=== PATIENT | female | born 1995 | race Caucasian/White ===

== ENCOUNTER 2019-10-14 18:38 | Inpatient (IN) | payer BC ==
[2019-10-14] MEDS ORDERED: Sodium Chloride 0.9% 10 ML Syringe FLUSH PRN (22:54)
[2019-10-14] MEDS ORDERED: Calcium Carbonate 500 MG Tab.Chew PO PRN (22:54)
[2019-10-14] MEDS ORDERED: Nalbuphine 10 MG/1 ML Vial IVPUSH PRN (22:54)
[2019-10-14] MEDS ORDERED: Acetaminophen 325 MG Tab PO PRN (22:54)
[2019-10-14] MEDS ORDERED: Lidocaine 1% 50 ML MDV INJECT ONE (22:54)
[2019-10-14] MEDS ORDERED: Ondansetron 4 MG/2 ML SDV IVPUSH PRN (22:54)
[2019-10-14] MEDS ORDERED: Oxytocin/Lactated Ringers 10 UNIT/1,000 ML BAG IV SCH ×2 (23:00)
[2019-10-14] MEDS: Misoprostol 25 MCG (1/4 of 100 MCG) Tab VAG SCH (23:35)
[2019-10-15] MEDS ORDERED: Bupivacaine 0.25% 10 ML SDV ONE
[2019-10-15] MEDS ORDERED: Misoprostol 25 MCG (1/4 of 100 MCG) Tab VAG SCH (01:00)
[2019-10-15] MEDS: Misoprostol 25 MCG (1/4 of 100 MCG) Tab VAG SCH ×2 (03:30→18:44)
--- NOTE | 2019-10-15 06:43 | PCM.LDHP ---
L&D History of Present Illness - General Date of Service: 10/15/19 Admit Problem/Dx: Patient Status Order with Admit Dx/Problem 10/14/19 22:54 Patient Status [ADT] Routine Admission Diagnosis/Problem Admission Diagnosis/Problem Source of Information: Patient History Limitations: Reports: No Limitations - History of Present Illness Introduction:: Patient is a 24 y/o at 39 3/7 wks who presents for concerns of contractions. Having been about every 4 minutes for several hours. no LOF. 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: 0 LMP (Approximate): - Past Surgical History HEENT Surgical History: Reports: Oral Surgery Other HEENT Surgeries/Procedures: wisdom teeth-2009 GI Surgical History: Reports: Cholecystectomy Social & Family History - Family History Family Medical History: Noncontributory - Tobacco Use Smoking Status *Q: Never Smoker Second Hand Smoke Exposure: No - Alcohol Use Alcohol Use History: No - Recreational Drug Use Recreational Drug Use: No H&P Review of Systems - Review of Systems: Review Of Systems: See Below General: Reports: No Symptoms Pulmonary: Reports: No Symptoms Cardiovascular: Reports: No Symptoms Gastrointestinal: Reports: Abdominal Pain Genitourinary: Reports: No Symptoms Musculoskeletal: Reports: No Symptoms Psychiatric: Reports: No Symptoms Neurological: Reports: No Symptoms L&D Exam - Exam Exam: See Below - Vital Signs Vital Signs: Last Vital Signs Temp 36.7 C 10/14/19 19:17 Pulse 82 10/14/19 19:17 Resp 16 10/14/19 19:17 BP 128/88 10/14/19 19:17 Pulse Ox 100 10/14/19 19:17 Weight: 76.657 kg - OB Specific Contraction Intensity: Mild Movement: Active Heart Tones: Present Heart Tones per Min: 130 Heart Rate (FHR) Variability: Moderate (6-25 bmp) Presentation: Vertex - Mckeon Score Mckeon Score Cervix Position: Posterior Mckeon Score Consistency: Soft Mckeon Score Effacement: 51-70% Mckeon Score Dilation: 1-2 cm Mckeon Score Infant's Station: -2 Mckeon Score Total: 6 - Exam General: Alert, Oriented, Cooperative Lungs: Clear to Auscultation, Normal Respiratory Effort Cardiovascular: Regular Rate, Regular Rhythm GI/Abdominal Exam: Soft, Non-Tender Genitourinary: Normal external exam Extremities: Normal Inspection Skin: Warm, Dry, Intact - Patient Data Lab Results Last 24 hrs: Laboratory Results - last 24 hr 10/14/19 Range/Units 23:20 WBC 12.79 H (3.98-10.04) K/mm3 RBC 4.44 (3.98-5.22) M/mm3 Hgb 13.9 (11.2-15.7) gm/dl Hct 39.9 (34.1-44.9) % MCV 89.9 (79.4-94.8) fl MCH 31.3 (25.6-32.2) pg MCHC 34.8 (32.2-35.5) g/dl RDW Std Deviation 41.8 (36.4-46.3) fL Plt Count 244 (182-369) K/mm3 MPV 10.2 (9.4-12.3) fl Neut % (Auto) 66.2 (34.0-71.1) % Lymph % (Auto) 26.0 (19.3-51.7) % Wilson % (Auto) 6.9 (4.7-12.5) % Eos % (Auto) 0.4 L (0.7-5.8) Baso % (Auto) 0.2 (0.1-1.2) % Neut # (Auto) 8.48 H (1.56-6.13) K/mm3 Lymph # (Auto) 3.32 (1.18-3.74) K/mm3 Wilson # (Auto) 0.88 H (0.24-0.36) K/mm3 Eos # (Auto) 0.05 (0.04-0.36) K/mm3 Baso # (Auto) 0.02 (0.01-0.08) K/mm3 Result Diagrams: 10/14/19 23:20 - Problem List (1) 39 weeks gestation of SNOMED Code(s): 06220458 ICD Code: Z3A.39 - 39 WEEKS GESTATION OF Status: Acute Current Visit: Yes (2) Prolonged latent phase of labor SNOMED Code(s): 685820720 ICD Code: O63.0 - PROLONGED FIRST STAGE (OF LABOR) Status: Acute Current Visit: Yes Problem List Initiated/Reviewed/Updated: Yes Orders Last 24hrs: Active Orders 24 hr Category Date Time Status Patient Status [ADT] Routine ADT 10/14/19 22:54 Active Activity as Tolerated [RC] PFP Care 10/14/19 22:54 Active Communication Order [RC] ASDIRECTED Care 10/14/19 22:54 Active Heart Tones [RC] ASDIRECTED Care 10/14/19 22:55 Active Notify Provider [RC] PFP Care 10/14/19 22:54 Active Notify Provider [RC] PRN Care 10/14/19 22:54 Active Peripheral IV Care [RC] . DIRECTED Care 10/14/19 22:55 Active Vital Signs [RC] PER UNIT ROUTINE Care 10/14/19 22:54 Active Regular Diet [DIET] Diet 10/15/19 Breakfast Active RAPID PLASMA REAGIN,RPR [CHEM] Routine Lab 10/14/19 23:20 Received Acetaminophen [Tylenol] Med 10/14/19 22:54 Active 650 mg PO Q4H PRN Calcium Carbonate [Tums] Med 10/14/19 22:54 Active 1,000 mg PO Q2H PRN Lactated Ringers [Ringers, Lactated] 1,000 ml Med 10/14/19 23:00 Active IV ASDIRECTED Nalbuphine [Nubain] Med 10/14/19 22:54 Active 10 mg IVPUSH Q2H PRN Ondansetron [Zofran] Med 10/14/19 22:54 Active 4 mg IVPUSH Q4H PRN Oxytocin/Lactated Ringers [Pitocin in LR 10 Units/1,000 Med 10/14/19 23:00 Active ML] 10 unit in 1,000 ml IV .CONTINUOUS Oxytocin/Lactated Ringers [Pitocin in LR 10 Units/1,000 Med 10/14/19 23:00 Active ML] 10 unit in 1,000 ml IV TITRATE Sodium Chloride 0.9% [Saline Flush] Med 10/14/19 22:54 Active 10 ml FLUSH ASDIRECTED PRN miSOPROStoL [Cytotec] Med 10/14/19 23:30 Active 25 mcg VAG Q4H Electronic Heart Tones Ext w TOCO [WOMSER] Oth 10/14/19 22:54 Ordered Routine Electronic Heart Tones Internal [WOMSER] Per Unit Oth 10/14/19 22:54 Ordered Routine Peripheral IV Insertion Adult [OM.PC] Routine Oth 10/14/19 22:54 Ordered Resuscitation Status Routine Resus Stat 10/14/19 22:54 Ordered Medication Orders Acetaminophen (Tylenol) 650 mg PO Q4H PRN PRN Reason: Pain (Mild 1-3) and fever Calcium Carbonate/Glycine (Tums) 1,000 mg PO Q2H PRN PRN Reason: Indigestion Lactated Ringer's (Ringers, Lactated) 1,000 mls @ 100 mls/hr IV ASDIRECTED HIRA Oxytocin/Lactated Ringer's (Pitocin In Lr 10 Units/1,000 Ml) 10 unit in 1,000 mls @ 500 mls/hr IV .CONTINUOUS HIRA Oxytocin/Lactated Ringer's (Pitocin In Lr 10 Units/1,000 Ml) 10 unit in 1,000 mls @ 12 mls/hr IV TITRATE HIRA; Protocol Misoprostol (Cytotec) 25 mcg VAG Q4H HIRA Last Admin: 10/15/19 03:30 Dose: 25 mcg Admin: 10/14/19 23:35 Dose: 25 mcg Nalbuphine HCl (Nubain) 10 mg IVPUSH Q2H PRN PRN Reason: Pain Ondansetron HCl (Zofran) 4 mg IVPUSH Q4H PRN PRN Reason: Nausea/Vomiting Sodium Chloride (Saline Flush) 10 ml FLUSH ASDIRECTED PRN PRN Reason: Keep Vein Open Assessment/Plan Comment:: Patient likely in latent labor. Reviewed happy to triage and send home, keep for overnight/extended triage. Patient does question whether can stay for IOL. Reviewed that technically can be done after 39 weeks however can certainly defer intervention. Patient and her would like to stay for triage now. May elect to say given distance from hospital. Will inform me of their decision later. Called by nursing staff at 2230. patient with no significant cervical change, but would like to stay for delivery. Cytotec to be given. Labs drawn. GBS negative, no need for antibiotics
[2019-10-15] MEDS: Lactated Ringers 1,000 ML IV SCH ×5 (08:09→17:45)
[2019-10-15] MEDS ORDERED: fentaNYL/Bupivacaine/NS 2 MCG-0.125% 250 ML EP PRN (09:03)
[2019-10-15] MEDS ORDERED: diphenhydrAMINE 50 MG/ML SDV IVPUSH PRN ×3 (09:03→18:09)
[2019-10-15] MEDS ORDERED: fentaNYL 100 MCG/2 ML SDV EPIDUR PRN (09:03)
[2019-10-15] MEDS ORDERED: ePHEDrine 50 MG/ML SDV IVPUSH PRN (09:03)
--- NOTE | 2019-10-15 09:05 | PCM.PREANE ---
Preanesthetic Assessment - Procedure Proposed Procedure: mabel - Anesthesia/Transfusion/Family Hx Anesthesia History: Prior Anesthesia Without Reaction Family History of Anesthesia Reaction: No Transfusion History: No Prior Transfusion(s) - Review of Systems General: No Symptoms Pulmonary: No Symptoms Cardiovascular: No Symptoms Gastrointestinal: No Symptoms Neurological: No Symptoms Other: Reports: None - Physical Assessment Vital Signs: Last Vital Signs Temp 98.0 F 10/14/19 19:17 Pulse 82 10/14/19 19:17 Resp 16 10/14/19 19:17 BP 128/88 10/14/19 19:17 Pulse Ox 100 10/14/19 19:17 Height: 5 ft 3 in Weight: 76.657 kg ASA Class: 2 Mental Status: Alert & Oriented x3 Airway Class: Mallampati = 1 Dentition: Reports: Normal Dentition Thyro-Mental Finger Breadths: 3 Mouth Opening Finger Breadths: 3 ROM/Head Extension: Full Lungs: Clear to Auscultation, Normal Respiratory Effort Cardiovascular: Regular Rate, Regular Rhythm - Lab Values: Laboratory Last Values WBC 12.79 K/mm3 (3.98-10.04) H 10/14/19 23:20 RBC 4.44 M/mm3 (3.98-5.22) 10/14/19 23:20 Hgb 13.9 gm/dl (11.2-15.7) 10/14/19 23:20 Hct 39.9 % (34.1-44.9) 10/14/19 23:20 MCV 89.9 fl (79.4-94.8) 10/14/19 23:20 MCH 31.3 pg (25.6-32.2) 10/14/19 23:20 MCHC 34.8 g/dl (32.2-35.5) 10/14/19 23:20 RDW Std Deviation 41.8 fL (36.4-46.3) 10/14/19 23:20 Plt Count 244 K/mm3 (182-369) 10/14/19 23:20 MPV 10.2 fl (9.4-12.3) 10/14/19 23:20 Neut % (Auto) 66.2 % (34.0-71.1) 10/14/19 23:20 Lymph % (Auto) 26.0 % (19.3-51.7) 10/14/19 23:20 Hopkins % (Auto) 6.9 % (4.7-12.5) 10/14/19 23:20 Eos % (Auto) 0.4 (0.7-5.8) L 10/14/19 23:20 Baso % (Auto) 0.2 % (0.1-1.2) 10/14/19 23:20 Neut # (Auto) 8.48 K/mm3 (1.56-6.13) H 10/14/19 23:20 Lymph # (Auto) 3.32 K/mm3 (1.18-3.74) 10/14/19 23:20 Hopkins # (Auto) 0.88 K/mm3 (0.24-0.36) H 10/14/19 23:20 Eos # (Auto) 0.05 K/mm3 (0.04-0.36) 10/14/19 23:20 Baso # (Auto) 0.02 K/mm3 (0.01-0.08) 10/14/19 23:20 - Allergies Allergies/Adverse Reactions: Allergies Allergy/AdvReac Type Severity Reaction Status Date / Time No Known Allergies Allergy Verified 10/14/19 20:54 - Blood Blood Available: No - Acknowledgements Anesthesia Type Planned: Epidural Pt an Appropriate Candidate for the Planned Anesthesia: Yes Alternatives and Risks of Anesthesia Discussed w Pt/Guardian: Yes Pt/Guardian Understands and Agrees with Anesthesia Plan: Yes PreAnesthesia Questionnaire - Past Health History Medical/Surgical History: Denies Medical/Surgical History HEENT History: Reports: Impaired Vision Other HEENT History: Wears contacts Cardiovascular History: Reports: None Respiratory History: Reports: None Gastrointestinal History: Reports: GERD (with preg) 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 Oncologic (Cancer) History: Reports: None - Past Surgical History HEENT Surgical History: Reports: Oral Surgery Other HEENT Surgeries/Procedures: wisdom teeth-2009 GI Surgical History: Reports: Cholecystectomy - SUBSTANCE USE Smoking Status *Q: Never Smoker Tobacco Use Within Last Twelve Months: No Second Hand Smoke Exposure: No Days Per Week of Alcohol Use: 0 Recreational Drug Use History: No - HOME MEDS Home Medications: Home Meds Pnv No.95/Ferrous Fum/Folic AC [ Vitamin Tablet] 1 each PO DAILY [History] - CURRENT (IN HOUSE) MEDS Current Meds: Current Medications Acetaminophen (Tylenol) 650 mg PO Q4H PRN PRN Reason: Pain (Mild 1-3) and fever Calcium Carbonate/Glycine (Tums) 1,000 mg PO Q2H PRN PRN Reason: Indigestion Lactated Ringer's (Ringers, Lactated) 1,000 mls @ 100 mls/hr IV ASDIRECTED HIRA Last Admin: 10/15/19 08:09 Dose: 100 mls/hr Oxytocin/Lactated Ringer's (Pitocin In Lr 10 Units/1,000 Ml) 10 unit in 1,000 mls @ 500 mls/hr IV .CONTINUOUS HIRA Oxytocin/Lactated Ringer's (Pitocin In Lr 10 Units/1,000 Ml) 10 unit in 1,000 mls @ 12 mls/hr IV TITRATE HIRA; Protocol Last Admin: 10/15/19 08:09 Dose: 2 munits/min, 12 mls/hr Misoprostol (Cytotec) 25 mcg VAG Q4H HIRA Last Admin: 10/15/19 03:30 Dose: 25 mcg Nalbuphine HCl (Nubain) 10 mg IVPUSH Q2H PRN PRN Reason: Pain Ondansetron HCl (Zofran) 4 mg IVPUSH Q4H PRN PRN Reason: Nausea/Vomiting Sodium Chloride (Saline Flush) 10 ml FLUSH ASDIRECTED PRN PRN Reason: Keep Vein Open Discontinued Medications Lidocaine HCl (Xylocaine 1%) 50 ml INJECT ONETIME ONE Stop: 10/14/19 22:55 Misoprostol (Cytotec) 25 mcg VAG Q4HR HIRA
[2019-10-15] MEDS ORDERED: Citric Acid/Sodium Citrate Solution 30 ML Cup ONE (14:11)
[2019-10-15] MEDS ORDERED: Metoclopramide 10 MG/2 ML SDV ONE (14:11)
--- NOTE | 2019-10-15 14:22 | PCM.SN ---
- Free Text/Narrative Note: 1415 Called by nursing staff. Patient with 9 minute deceleration. Lowest portion of deceleration into the 70's. Deceleration about 7 minutes after ROM. Recovered now to 125 with moderate variability. Will continue to monitor closely Gayathri Prieto MD
[2019-10-15] MEDS ORDERED: ceFAZolin 2 GM in Premix Bag 1 BAG IV ONE (15:53)
[2019-10-15] MEDS ORDERED: Metoclopramide 10 MG/2 ML SDV IVPUSH ONE (15:53)
[2019-10-15] MEDS ORDERED: Nalbuphine 10 MG/1 ML Vial IVPUSH PRN (15:53)
--- NOTE | 2019-10-15 15:53 | PCM.SN ---
- Free Text/Narrative Note: 2760 Patient now with intermittent runs of late decelerations. Not able to start pitocin since last prolonged deceleration. Patient still only about 5 cm. Reviewed tracing findings. Discuss with patient and family. They agree to delivery by . OR crew made aware. Gayathri Prieto
[2019-10-15] MEDS ORDERED: Ondansetron 4 MG/2 ML SDV ONE (15:56)
[2019-10-15] MEDS ORDERED: fentaNYL 100 MCG/2 ML SDV ONE (15:56)
[2019-10-15] MEDS ORDERED: Lactated Ringers 2,000 ML ONE (15:56)
[2019-10-15] MEDS ORDERED: Morphine PF 10 MG/10 ML SDV ONE (15:56)
[2019-10-15] MEDS ORDERED: Oxytocin 10 Units/1 ML SDV ONE (15:56)
[2019-10-15] MEDS ORDERED: Ketorolac 30 MG/ML SDV ONE (15:56)
[2019-10-15] MEDS ORDERED: ceFAZolin 1 GM Vial ONE (15:56)
[2019-10-15] MEDS ORDERED: Citric Acid/Sodium Citrate Solution 30 ML Cup PO ONE (16:00)
--- NOTE | 2019-10-15 16:04 | PCM.OPNOTE ---
- General Post-Op/Procedure Note Date of Surgery/Procedure: 10/15/19 Operative Procedure(s): Primary low transverse Findings: Baby Girl, vertex presentation, APGARS of 7 & 8, Weight of 7 lbs 2 oz Pre Op Diagnosis: 39 weeks gestation. Thick meconium stained fluid. 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 Cord blood collected. Placenta discarded Fluid Replacement, Intraop: 1,800 Output, Urine Amount: 175 EBL in mLs: 700 Complications: None Condition: Good Free Text/Narrative:: The risks, benefits, indications, potential complications, and alternatives were explained to the patient and informed consent obtained. After induction of anesthesia, the patient was placed in a supine position and then draped and prepped in the usual sterile manner. A Pfannenstiel incision was made and carried down through the subcutaneous tissue to the fascia. Fascial incision was made and extended transversely. The fascia was from the underlying rectus tissue superiorly and inferiorly. The peritoneum was identified and entered. Peritoneal incision was extended longitudinally. The utero-vesical peritoneal reflection was incised transversely and the bladder flap was bluntly freed from the lower uterine segment. A low transverse uterine incision was made sharply with a scalpel and extended bluntly in a cephalocaudad direction. A baby girl was delivered from a vertex presentation with APGARS as above. After the umbilical cord was clamped and cut cord blood was obtained for evaluation. The placenta was removed intact and appeared normal. The uterus was exteriorized and cleared of clots. The uterine outline, tubes and ovaries appeared normal. The uterine incision was closed with running locked sutures of 0 Vicryl. Hemostasis was obtained with a second imbricating layer of 0 Vicryl. The uterus was then placed back into the abdomen. The infracolic gutters were cleared of blood clots. The fascia was then reapproximated with running sutures of 0 Vicryl. The subcutaneous tissue was irrigated with sterile warm normal saline, hemostasis obtained with cautery. This layer was also closed with a running 0 Vicryl. The skin was reapproximated with running Subcuticular 4-0 monocryl sutures. Instrument, sponge, and needle counts were correct prior the abdominal closure and at the conclusion of the case.
[2019-10-15] MEDS ORDERED: Azithromycin 500 MG in Sodium Chloride 0.9% 250 ML IV ONE (16:07)
[2019-10-15] MEDS ORDERED: Phenylephrine/Normal Saline 100 MCG/ML 10 ML Syringe ONE ×2 (16:25→16:42)
[2019-10-15] MEDS ORDERED: Lidocaine 2% with EPINEPHrine 1:200,000 20 ML SDV ONE (16:42)
[2019-10-15] MEDS ORDERED: Sodium Bicarbonate 8.4% 50 MEQ/50 ML SDV ONE (16:42)
[2019-10-15] MEDS ORDERED: Ondansetron 4 MG/2 ML SDV IVPUSH PRN (17:13)
[2019-10-15] MEDS ORDERED: fentaNYL 100 MCG/2 ML SDV IVPUSH PRN (17:13)
--- NOTE | 2019-10-15 17:13 | PCM.POSTAN ---
POST ANESTHESIA ASSESSMENT - MENTAL STATUS Mental Status: Alert, Oriented - VITAL SIGNS Vital Signs: Last Vital Signs 1701 78/48 106 17 96% 98F - RESPIRATORY Respiratory Status: Respiratory Rate WNL, Airway Patent, O2 Saturation Stable - CARDIOVASCULAR CV Status: Pulse Rate WNL, Low Blood Pressure - GASTROINTESTINAL GI Status: No Symptoms - POST OP HYDRATION Hydration Status: Adequate & Stable
[2019-10-15] MEDS ORDERED: Lactated Ringers 1,000 ML IV SCH (17:30)
[2019-10-15] MEDS ORDERED: Docusate Sodium 100 MG Cap PO PRN (18:09)
[2019-10-15] MEDS ORDERED: Ondansetron 4 MG/2 ML SDV IV PRN (18:09)
[2019-10-15] MEDS ORDERED: Dextrose 5%-Lactated Ringers 1,000 ML IV SCH (18:09)
[2019-10-15] MEDS: Ketorolac 30 MG/ML SDV IVPUSH SCH (23:21)
[2019-10-16] MEDS: Ketorolac 30 MG/ML SDV IVPUSH SCH ×2 (05:23→10:55)
--- NOTE | 2019-10-16 09:10 | PCM.PNPP ---
- General Info Date of Service: 10/16/19 Functional Status: Reports: Pain Controlled, Tolerating Diet, Ambulating - Review of Systems General: Reports: No Symptoms Pulmonary: Reports: No Symptoms Cardiovascular: Reports: No Symptoms Gastrointestinal: Reports: Abdominal Pain (managed with medications ) Genitourinary: Reports: No Symptoms Musculoskeletal: Reports: No Symptoms Neurological: Reports: No Symptoms - Patient Data Vital Signs - Most Recent: Last Vital Signs Temp 36.9 C 10/16/19 08:11 Pulse 82 10/16/19 08:11 Resp 16 10/16/19 08:11 BP 118/78 10/16/19 08:11 Pulse Ox 100 10/16/19 08:11 Weight - Most Recent: 76.657 kg I&O - Last 24 Hours: Intake & Output 10/15/19 10/16/19 10/16/19 22:59 06:59 14:59 Intake Total 9150 1800 Output Total 1105 850 275 Balance 8045 -850 1525 Lab Results - Last 24 Hours: Laboratory Results - last 24 hr 10/14/19 10/16/19 Range/Units 23:20 06:02 WBC 14.66 H (3.98-10.04) K/mm3 RBC 3.23 L (3.98-5.22) M/mm3 Hgb 10.0 L D (11.2-15.7) gm/dl Hct 30.0 L (34.1-44.9) % MCV 92.9 D (79.4-94.8) fl MCH 31.0 (25.6-32.2) pg MCHC 33.3 (32.2-35.5) g/dl RDW Std Deviation 42.4 (36.4-46.3) fL Plt Count 178 L (182-369) K/mm3 MPV 9.7 (9.4-12.3) fl RPR Non-reactive (NONREACTIVE) Med Orders - Current: Current Medications Diphenhydramine HCl (Benadryl) 25 mg IVPUSH Q6H PRN PRN Reason: Itching or Nausea Docusate Sodium (Colace) 100 mg PO Q12H PRN PRN Reason: Constipation Ibuprofen (Motrin) 600 mg PO Q6H PRN PRN Reason: mild pain or fever Ketorolac Tromethamine (Toradol) 30 mg IVPUSH Q6H HIRA Stop: 10/16/19 11:01 Last Admin: 10/16/19 05:23 Dose: 30 mg Ondansetron HCl (Zofran) 4 mg IV Q8H PRN PRN Reason: Nausea/Vomiting Oxycodone/Acetaminophen (Percocet 325-5 Mg) 2 tab PO Q4H PRN PRN Reason: Pain (severe 7-10) Discontinued Medications Acetaminophen (Tylenol) 650 mg PO Q4H PRN PRN Reason: Pain (Mild 1-3) and fever Bupivacaine HCl (Sensorcaine-Mpf 0.25%) 10 ml .ROUTE .STK-MED ONE Stop: 10/15/19 00:01 Calcium Carbonate/Glycine (Tums) 1,000 mg PO Q2H PRN PRN Reason: Indigestion Cefazolin Sodium (Ancef) Confirm Administered Dose 2 gm .ROUTE .STK-MED ONE Stop: 10/15/19 15:57 Citric Acid/Sodium Citrate (Bicitra Solution) Confirm Administered Dose 30 ml .ROUTE .STK-MED ONE Stop: 10/15/19 14:12 Last Admin: 10/15/19 18:44 Dose: Not Given Citric Acid/Sodium Citrate (Bicitra Solution) 30 ml PO ONETIME ONE Stop: 10/15/19 16:01 Last Admin: 10/15/19 15:56 Dose: 30 ml Diphenhydramine HCl (Benadryl) 25 mg IVPUSH Q6H PRN PRN Reason: pruritis Diphenhydramine HCl (Benadryl) 25 mg IVPUSH Q6H PRN PRN Reason: Pruritis Stop: 10/15/19 19:30 Ephedrine Sulfate (Ephedrine Sulfate) 5 mg IVPUSH ASDIRECTED PRN PRN Reason: Hypotension Fentanyl (Sublimaze) 100 mcg EPIDUR Q3H PRN PRN Reason: Pain Last Admin: 10/15/19 11:49 Dose: 100 mcg Fentanyl (Sublimaze) Confirm Administered Dose 100 mcg .ROUTE .STK-MED ONE Stop: 10/15/19 15:57 Fentanyl (Sublimaze) 50 mcg IVPUSH Q5M PRN PRN Reason: Pain Stop: 10/15/19 19:30 Fentanyl/Bupivacaine HCl (Fentanyl/Bupivacaine/Ns 2 Mcg-0.125% 250 Ml) 250 ml EP CONTINUOUS PRN PRN Reason: Pain Last Admin: 10/15/19 11:49 Dose: 250 ml Lactated Ringer's (Ringers, Lactated) 1,000 mls @ 100 mls/hr IV ASDIRECTED HIRA Last Admin: 10/15/19 17:45 Dose: 100 mls/hr Oxytocin/Lactated Ringer's (Pitocin In Lr 10 Units/1,000 Ml) 10 unit in 1,000 mls @ 500 mls/hr IV .CONTINUOUS HIRA Oxytocin/Lactated Ringer's (Pitocin In Lr 10 Units/1,000 Ml) 10 unit in 1,000 mls @ 12 mls/hr IV TITRATE HIRA; Protocol Last Titration: 10/15/19 12:26 Dose: 0 munits/min, 0 mls/hr Cefazolin Sodium/Dextrose 2 gm (/ Premix) 50 mls @ 100 mls/hr IV ONETIME ONE Stop: 10/15/19 16:22 Last Admin: 10/15/19 16:15 Dose: 100 mls/hr Lactated Ringer's (Ringers, Lactated) Confirm Administered Dose 2,000 mls @ as directed .ROUTE .STK-MED ONE Stop: 10/15/19 15:57 Azithromycin 500 mg/ Sodium (Chloride) 250 mls @ 250 mls/hr IV ONETIME ONE Stop: 10/15/19 17:06 Last Admin: 10/15/19 16:00 Dose: 250 mls/hr Lactated Ringer's (Ringers, Lactated) 1,000 mls @ 125 mls/hr IV ASDIRECTED HIRA Dextrose/Lactated Ringer's (Dextrose 5%-Lactated Ringers) 1,000 mls @ 125 mls/ hr IV ASDIRECTED HIRA Stop: 10/16/19 02:08 Last Admin: 10/15/19 20:45 Dose: 125 mls/hr Ketorolac Tromethamine (Toradol) Confirm Administered Dose 30 mg .ROUTE .STK- MED ONE Stop: 10/15/19 15:57 Lidocaine HCl (Xylocaine 1%) 50 ml INJECT ONETIME ONE Stop: 10/14/19 22:55 Last Admin: 10/15/19 18:46 Dose: Not Given Lidocaine/Epinephrine (Xylocaine-Mpf 2%-Epi 1:200,000) Confirm Administered Dose 20 ml .ROUTE .STK-MED ONE Stop: 10/15/19 16:43 Metoclopramide HCl (Reglan) Confirm Administered Dose 10 mg .ROUTE .STK-MED ONE Stop: 10/15/19 14:12 Last Admin: 10/15/19 18:44 Dose: Not Given Metoclopramide HCl (Reglan) 10 mg IVPUSH ONETIME ONE Stop: 10/15/19 15:54 Last Admin: 10/15/19 15:56 Dose: 10 mg Misoprostol (Cytotec) 25 mcg VAG Q4HR HIRA Misoprostol (Cytotec) 25 mcg VAG Q4H HIRA Last Admin: 10/15/19 18:44 Dose: Not Given Morphine Sulfate (Duramorph Pf) Confirm Administered Dose 10 mg .ROUTE .STK-MED ONE Stop: 10/15/19 15:57 Nalbuphine HCl (Nubain) 10 mg IVPUSH Q2H PRN PRN Reason: Pain Ondansetron HCl (Zofran) 4 mg IVPUSH Q4H PRN PRN Reason: Nausea/Vomiting Last Admin: 10/15/19 11:14 Dose: 4 mg Ondansetron HCl (Zofran) Confirm Administered Dose 4 mg .ROUTE .STK-MED ONE Stop: 10/15/19 15:57 Ondansetron HCl (Zofran) 4 mg IVPUSH ONETIME PRN PRN Reason: Nausea/Vomiting Stop: 10/15/19 19:30 Oxytocin (Pitocin) Confirm Administered Dose 20 unit .ROUTE .STK-MED ONE Stop: 10/15/19 15:57 Phenylephrine HCl (Phenylephrine In Ns 100 Mcg/Ml) Confirm Administered Dose 1 mg .ROUTE .STK-MED ONE Stop: 10/15/19 16:26 Phenylephrine HCl (Phenylephrine In Ns 100 Mcg/Ml) Confirm Administered Dose 1 mg .ROUTE .STK-MED ONE Stop: 10/15/19 16:43 Sodium Bicarbonate (Sodium Bicarbonate 8.4%) Confirm Administered Dose 50 meq .ROUTE .STK-MED ONE Stop: 10/15/19 16:43 Sodium Chloride (Saline Flush) 10 ml FLUSH ASDIRECTED PRN PRN Reason: Keep Vein Open - Interaction Disposition, : [place] in Room with Family Interaction: Holding Infant Feeding: Attempted ; Nursed Fair/Poor Support Person: - Recovery Exam Fundal Tone: Firm Fundal Level: At Umbilicus Fundal Placement: Midline Lochia Amount: Scant Lochia Color: Rubra/Red Perineum Description: Intact, Minimal Bruising/Swelling Episiotomy/Laceration: None Bladder Status: Indwelling Catheter in Place Urinary Elimination: Indwelling Catheter - Exam General: Alert, Oriented, Cooperative Lungs: Clear to Auscultation, Normal Respiratory Effort Cardiovascular: Regular Rate, Regular Rhythm GI/Abdominal Exam: Soft, Tender (appropriate post op ) Extremities: Normal Inspection Skin: Warm, Dry, Intact Wound/Incisions: Healing Well, No Drainage - Problem List & Annotations (1) 39 weeks gestation of SNOMED Code(s): 98245851 Code(s): Z3A.39 - 39 WEEKS GESTATION OF Status: Acute Current Visit: Yes (2) Prolonged latent phase of labor SNOMED Code(s): 529344678 Code(s): O63.0 - PROLONGED FIRST STAGE (OF LABOR) Status: Acute Current Visit: Yes (3) Meconium stained amniotic fluid, delivered, current hospitalization SNOMED Code(s): 016631303, 885677425 Code(s): O77.0 - LABOR AND DELIVERY COMPLICATED BY MECONIUM IN AMNIOTIC FLUID Status: Acute Current Visit: Yes (4) Non-reassuring heart rate or rhythm affecting mother SNOMED Code(s): 81667453, 428557984, 722870998 Code(s): O36.8390 - MATERN CARE FOR ABNLT FETL HRT RATE OR RHYM, UNSP TRI, UNSP Status: Acute Current Visit: Yes (5) S/P primary low transverse SNOMED Code(s): 889171420, 52382449, 008426553, 460181195, 959850009 Code(s): Z98.891 - HISTORY OF UTERINE SCAR FROM PREVIOUS SURGERY Status: Acute Current Visit: Yes - Problem List Review Problem List Initiated/Reviewed/Updated: Yes - My Orders Last 24 Hours: My Active Orders 10/15/19 15:53 Procedure Site Prep Instruct [RC] ASDIRECTED Verify Patient Consent Obtain [RC] PER UNIT ROUTINE 10/15/19 18:09 Activity as Tolerated [RC] .Routine Antiembolic Devices [RC] PER UNIT ROUTINE Communication Order [RC] PER UNIT ROUTINE Intake and Output [RC] Q4H May Shower [RC] PER UNIT ROUTINE Notify Provider Intake and Out [RC] ASDIRECTED RT Incentive Spirometry [RC] Q2HWA Vital Signs [RC] Q4HR Acetaminophen/oxyCODONE [Percocet 325-5 MG] 2 tab PO Q4H PRN Docusate Sodium [Colace] 100 mg PO Q12H PRN Ondansetron [Zofran] 4 mg IV Q8H PRN diphenhydrAMINE [Benadryl] 25 mg IVPUSH Q6H PRN Assess Lochia [WOMSER] Per Unit Routine Assess Uterine Involution [WOMSER] Per Unit Routine Breast Pump [WOMSER] Per Unit Routine Peripheral IV Discontinue [OM.PC] Routine Sequential Compression Device [OM.PC] Per Unit Routine 10/15/19 23:00 Ketorolac [Toradol] 30 mg IVPUSH Q6H 10/15/19 Dinner Regular Diet [DIET] 10/16/19 17:01 Ibuprofen [Motrin] 600 mg PO Q6H PRN 10/16/19 17:10 Urinary Catheter Removal [RC] Per Unit Routine - Assessment Assessment:: POD#1 from PLTCS - Plan Plan:: * Routine cares * Breast feeding * Discharge home in 1-2 days
--- NOTE | 2019-10-16 11:01 | PCM48HPAN ---
Post Anesthesia Note - EVALUATION WITHIN 48HRS OF ANESTHETIC Vital Signs in Normal Range: Yes Patient Participated in Evaluation: Yes Respiratory Function Stable: Yes Airway Patent: Yes Cardiovascular Function Stable: Yes Hydration Status Stable: Yes Pain Control Satisfactory: Yes Nausea and Vomiting Control Satisfactory: Yes Mental Status Recovered: Yes Vital Signs: Last Vital Signs Temp 36.9 C 10/16/19 08:11 Pulse 82 10/16/19 08:11 Resp 16 10/16/19 09:00 BP 118/78 10/16/19 08:11 Pulse Ox 98 10/16/19 09:00
[2019-10-16] MEDS ORDERED: Ibuprofen 600 MG Tab PO PRN (17:01)
[2019-10-16] MEDS: Acetaminophen/oxyCODONE 325-5 MG Tab PO PRN (18:32)
[2019-10-17] MEDS: Acetaminophen/oxyCODONE 325-5 MG Tab PO PRN (04:08)
--- NOTE | 2019-10-17 05:53 | PCM.PNPP ---
- General Info Date of Service: 10/17/19 Functional Status: Reports: Pain Controlled, Tolerating Diet, Ambulating, Urinating - Review of Systems General: Reports: No Symptoms Pulmonary: Reports: No Symptoms Cardiovascular: Reports: No Symptoms Gastrointestinal: Reports: Abdominal Pain (manageable ) Genitourinary: Reports: No Symptoms Musculoskeletal: Reports: No Symptoms Neurological: Reports: No Symptoms - Patient Data Vital Signs - Most Recent: Last Vital Signs Temp 36.9 C 10/16/19 21:06 Pulse 82 10/16/19 21:06 Resp 14 10/16/19 21:06 BP 111/73 10/16/19 21:06 Pulse Ox 98 10/16/19 21:06 Weight - Most Recent: 76.657 kg I&O - Last 24 Hours: Intake & Output 10/16/19 10/16/19 10/17/19 14:59 22:59 06:59 Intake Total 1800 Output Total 875 750 Balance 925 -750 Lab Results - Last 24 Hours: Laboratory Results - last 24 hr 10/16/19 Range/Units 06:02 WBC 14.66 H (3.98-10.04) K/mm3 RBC 3.23 L (3.98-5.22) M/mm3 Hgb 10.0 L D (11.2-15.7) gm/dl Hct 30.0 L (34.1-44.9) % MCV 92.9 D (79.4-94.8) fl MCH 31.0 (25.6-32.2) pg MCHC 33.3 (32.2-35.5) g/dl RDW Std Deviation 42.4 (36.4-46.3) fL Plt Count 178 L (182-369) K/mm3 MPV 9.7 (9.4-12.3) fl Med Orders - Current: Current Medications Diphenhydramine HCl (Benadryl) 25 mg IVPUSH Q6H PRN PRN Reason: Itching or Nausea Docusate Sodium (Colace) 100 mg PO Q12H PRN PRN Reason: Constipation Ibuprofen (Motrin) 600 mg PO Q6H PRN PRN Reason: mild pain or fever Last Admin: 10/16/19 21:10 Dose: 600 mg Ondansetron HCl (Zofran) 4 mg IV Q8H PRN PRN Reason: Nausea/Vomiting Oxycodone/Acetaminophen (Percocet 325-5 Mg) 2 tab PO Q4H PRN PRN Reason: Pain (severe 7-10) Last Admin: 10/17/19 04:08 Dose: 2 tab Discontinued Medications Acetaminophen (Tylenol) 650 mg PO Q4H PRN PRN Reason: Pain (Mild 1-3) and fever Bupivacaine HCl (Sensorcaine-Mpf 0.25%) 10 ml .ROUTE .STK-MED ONE Stop: 10/15/19 00:01 Calcium Carbonate/Glycine (Tums) 1,000 mg PO Q2H PRN PRN Reason: Indigestion Cefazolin Sodium (Ancef) Confirm Administered Dose 2 gm .ROUTE .STK-MED ONE Stop: 10/15/19 15:57 Citric Acid/Sodium Citrate (Bicitra Solution) Confirm Administered Dose 30 ml .ROUTE .STK-MED ONE Stop: 10/15/19 14:12 Last Admin: 10/15/19 18:44 Dose: Not Given Citric Acid/Sodium Citrate (Bicitra Solution) 30 ml PO ONETIME ONE Stop: 10/15/19 16:01 Last Admin: 10/15/19 15:56 Dose: 30 ml Diphenhydramine HCl (Benadryl) 25 mg IVPUSH Q6H PRN PRN Reason: pruritis Diphenhydramine HCl (Benadryl) 25 mg IVPUSH Q6H PRN PRN Reason: Pruritis Stop: 10/15/19 19:30 Ephedrine Sulfate (Ephedrine Sulfate) 5 mg IVPUSH ASDIRECTED PRN PRN Reason: Hypotension Fentanyl (Sublimaze) 100 mcg EPIDUR Q3H PRN PRN Reason: Pain Last Admin: 10/15/19 11:49 Dose: 100 mcg Fentanyl (Sublimaze) Confirm Administered Dose 100 mcg .ROUTE .STK-MED ONE Stop: 10/15/19 15:57 Fentanyl (Sublimaze) 50 mcg IVPUSH Q5M PRN PRN Reason: Pain Stop: 10/15/19 19:30 Fentanyl/Bupivacaine HCl (Fentanyl/Bupivacaine/Ns 2 Mcg-0.125% 250 Ml) 250 ml EP CONTINUOUS PRN PRN Reason: Pain Last Admin: 10/15/19 11:49 Dose: 250 ml Lactated Ringer's (Ringers, Lactated) 1,000 mls @ 100 mls/hr IV ASDIRECTED HIRA Last Admin: 10/15/19 17:45 Dose: 100 mls/hr Oxytocin/Lactated Ringer's (Pitocin In Lr 10 Units/1,000 Ml) 10 unit in 1,000 mls @ 500 mls/hr IV .CONTINUOUS HIRA Oxytocin/Lactated Ringer's (Pitocin In Lr 10 Units/1,000 Ml) 10 unit in 1,000 mls @ 12 mls/hr IV TITRATE HIRA; Protocol Last Titration: 10/15/19 12:26 Dose: 0 munits/min, 0 mls/hr Cefazolin Sodium/Dextrose 2 gm (/ Premix) 50 mls @ 100 mls/hr IV ONETIME ONE Stop: 10/15/19 16:22 Last Admin: 10/15/19 16:15 Dose: 100 mls/hr Lactated Ringer's (Ringers, Lactated) Confirm Administered Dose 2,000 mls @ as directed .ROUTE .STK-MED ONE Stop: 10/15/19 15:57 Azithromycin 500 mg/ Sodium (Chloride) 250 mls @ 250 mls/hr IV ONETIME ONE Stop: 10/15/19 17:06 Last Admin: 10/15/19 16:00 Dose: 250 mls/hr Lactated Ringer's (Ringers, Lactated) 1,000 mls @ 125 mls/hr IV ASDIRECTED HIRA Dextrose/Lactated Ringer's (Dextrose 5%-Lactated Ringers) 1,000 mls @ 125 mls/ hr IV ASDIRECTED HIRA Stop: 10/16/19 02:08 Last Admin: 10/15/19 20:45 Dose: 125 mls/hr Ketorolac Tromethamine (Toradol) Confirm Administered Dose 30 mg .ROUTE .STK- MED ONE Stop: 10/15/19 15:57 Ketorolac Tromethamine (Toradol) 30 mg IVPUSH Q6H HIRA Stop: 10/16/19 11:01 Last Admin: 10/16/19 10:55 Dose: 30 mg Lidocaine HCl (Xylocaine 1%) 50 ml INJECT ONETIME ONE Stop: 10/14/19 22:55 Last Admin: 10/15/19 18:46 Dose: Not Given Lidocaine/Epinephrine (Xylocaine-Mpf 2%-Epi 1:200,000) Confirm Administered Dose 20 ml .ROUTE .STK-MED ONE Stop: 10/15/19 16:43 Metoclopramide HCl (Reglan) Confirm Administered Dose 10 mg .ROUTE .STK-MED ONE Stop: 10/15/19 14:12 Last Admin: 10/15/19 18:44 Dose: Not Given Metoclopramide HCl (Reglan) 10 mg IVPUSH ONETIME ONE Stop: 10/15/19 15:54 Last Admin: 10/15/19 15:56 Dose: 10 mg Misoprostol (Cytotec) 25 mcg VAG Q4HR HIRA Misoprostol (Cytotec) 25 mcg VAG Q4H HIRA Last Admin: 10/15/19 18:44 Dose: Not Given Morphine Sulfate (Duramorph Pf) Confirm Administered Dose 10 mg .ROUTE .STK-MED ONE Stop: 10/15/19 15:57 Nalbuphine HCl (Nubain) 10 mg IVPUSH Q2H PRN PRN Reason: Pain Ondansetron HCl (Zofran) 4 mg IVPUSH Q4H PRN PRN Reason: Nausea/Vomiting Last Admin: 10/15/19 11:14 Dose: 4 mg Ondansetron HCl (Zofran) Confirm Administered Dose 4 mg .ROUTE .STK-MED ONE Stop: 10/15/19 15:57 Ondansetron HCl (Zofran) 4 mg IVPUSH ONETIME PRN PRN Reason: Nausea/Vomiting Stop: 10/15/19 19:30 Oxytocin (Pitocin) Confirm Administered Dose 20 unit .ROUTE .STK-MED ONE Stop: 10/15/19 15:57 Phenylephrine HCl (Phenylephrine In Ns 100 Mcg/Ml) Confirm Administered Dose 1 mg .ROUTE .STK-MED ONE Stop: 10/15/19 16:26 Phenylephrine HCl (Phenylephrine In Ns 100 Mcg/Ml) Confirm Administered Dose 1 mg .ROUTE .STK-MED ONE Stop: 10/15/19 16:43 Sodium Bicarbonate (Sodium Bicarbonate 8.4%) Confirm Administered Dose 50 meq .ROUTE .STK-MED ONE Stop: 10/15/19 16:43 Sodium Chloride (Saline Flush) 10 ml FLUSH ASDIRECTED PRN PRN Reason: Keep Vein Open - Infant Interaction Disposition, : Hester in Room with Family Interaction: Holding Infant Infant Feeding: Breastfed Infant; Nursed Well Support Person: - Recovery Exam Fundal Tone: Firm Fundal Level: At Umbilicus Fundal Placement: Midline Lochia Amount: Small Lochia Color: Rubra/Red Perineum Description: Intact, Minimal Bruising/Swelling Episiotomy/Laceration: Approximated Bladder Status: Nonpalpable, Voiding Urinary Elimination: Voided - Exam General: Alert, Oriented, Cooperative Lungs: Clear to Auscultation, Normal Respiratory Effort Cardiovascular: Regular Rate, Regular Rhythm GI/Abdominal Exam: Soft, Non-Tender Extremities: Normal Inspection Skin: Warm, Dry, Intact Wound/Incisions: Healing Well, No Drainage - Problem List & Annotations (1) 39 weeks gestation of SNOMED Code(s): 84553485 Code(s): Z3A.39 - 39 WEEKS GESTATION OF Status: Acute Current Visit: Yes (2) Prolonged latent phase of labor SNOMED Code(s): 667480566 Code(s): O63.0 - PROLONGED FIRST STAGE (OF LABOR) Status: Acute Current Visit: Yes (3) Meconium stained amniotic fluid, delivered, current hospitalization SNOMED Code(s): 699682413, 311996248 Code(s): O77.0 - LABOR AND DELIVERY COMPLICATED BY MECONIUM IN AMNIOTIC FLUID Status: Acute Current Visit: Yes (4) Non-reassuring heart rate or rhythm affecting mother SNOMED Code(s): 17141606, 372348147, 349705150 Code(s): O36.8390 - MATERN CARE FOR ABNLT FETL HRT RATE OR RHYM, UNSP TRI, UNSP Status: Acute Current Visit: Yes (5) S/P primary low transverse SNOMED Code(s): 819142578, 63365106, 138234631, 135755142, 282629767 Code(s): Z98.891 - HISTORY OF UTERINE SCAR FROM PREVIOUS SURGERY Status: Acute Current Visit: Yes - Problem List Review Problem List Initiated/Reviewed/Updated: Yes - My Orders Last 24 Hours: My Active Orders 10/16/19 17:01 Ibuprofen [Motrin] 600 mg PO Q6H PRN - Assessment Assessment:: POD#2 from [facility]TCS - Plan Plan:: * Routine cares * Breast feeding * Discharge home today per patient preference
--- NOTE | 2019-10-17 06:03 | PCM.DCSUM1 ---
Discharge Summary - Discharge Data Discharge Date: 10/17/19 Discharge Disposition: Home, Self-Care 01 Condition: Good - Referral to Home Health Primary Care Physician: Gayathri Prieto MD - Discharge Diagnosis/Problem(s) (1) 39 weeks gestation of SNOMED Code(s): 33901611 ICD Code: Z3A.39 - 39 WEEKS GESTATION OF Status: Acute (2) Prolonged latent phase of labor SNOMED Code(s): 583503756 ICD Code: O63.0 - PROLONGED FIRST STAGE (OF LABOR) Status: Acute (3) Meconium stained amniotic fluid, delivered, current hospitalization SNOMED Code(s): 130377741, 167879473 ICD Code: O77.0 - LABOR AND DELIVERY COMPLICATED BY MECONIUM IN AMNIOTIC FLUID Status: Acute (4) Non-reassuring heart rate or rhythm affecting mother SNOMED Code(s): 33066304, 629459163, 560977470 ICD Code: O36.8390 - MATERN CARE FOR ABNLT FETL HRT RATE OR RHYM, UNSP TRI, UNSP Status: Acute (5) S/P primary low transverse SNOMED Code(s): 766647505, 77830689, 568577993, 464288772, 989191956 ICD Code: Z98.891 - HISTORY OF UTERINE SCAR FROM PREVIOUS SURGERY Status: Acute - Patient Summary/Data Operative Procedure(s) Performed: Primary low transverse Complications: None Consults: None Recommended Follow-up Testing/Procedures: Follow up in 1 week for incision check Hospital Course: Patient is a 24-year-old who presented at 39-3/7 weeks' gestation with likely latent labor. When did not make cervical change she did ask if could stay for induction of labor. Request was made given distance from hospital. She was over 39 weeks' gestation and thought to be likely in early/latent labor and was admitted. She was given Cytotec to help ripen her cervix further and then Pitocin. Unfortunately did have several prolonged decelerations in addition to increasing frequency of late decelerations. Due to these findings was eventually taken for a primary . Surgery uncomplicated. See operative note. she did well and was meeting all goals of the last discharged home on postoperative day #2 - Patient Instructions Diet: Regular Diet as Tolerated Activity: No Lifting Over 10 Pounds Activity, Other: Pelvic rest for 6 weeks Driving: Do Not Drive (while taking narcotics ) Showering/Bathing: May Shower, No Tub Bathing/Swimming Wound/Incision Care: Keep Operative Site/Wound Site Clean and Dry Notify Provider of: Fever, Increased Pain, Swelling and Redness, Drainage, Nausea and/or Vomiting - Discharge Plan *PRESCRIPTION DRUG MONITORING PROGRAM REVIEWED*: No *COPY OF PRESCRIPTION DRUG MONITORING REPORT IN PATIENT KEYANNA: No Prescriptions/Med Rec: Acetaminophen/oxyCODONE [Percocet 325-5 MG] 1 - 2 tab PO Q6H PRN #20 tablet PRN Reason: Pain (Severe 7-10) Home Medications: Home Meds Pnv No.95/Ferrous Fum/Folic AC [ Vitamin Tablet] 1 each PO DAILY [History] Acetaminophen/oxyCODONE [Percocet 325-5 MG] 1 - 2 tab PO Q6H PRN #20 tablet [Rx] Docusate Sodium [Colace] 100 mg PO Q12H PRN cap 10/16/19 [Rx] Ibuprofen [Motrin] 600 mg PO Q6H PRN tablet 10/16/19 [Rx] Patient Handouts: Delivery, Care After Referrals: Gayathri Prieto MD [Primary Care Provider] - (1 week for post op check) - Discharge Summary/Plan Comment DC Time >30 min.: No - Patient Data Vitals - Most Recent: Last Vital Signs Temp 36.9 C 10/16/19 21:06 Pulse 82 10/16/19 21:06 Resp 14 10/16/19 21:06 BP 111/73 10/16/19 21:06 Pulse Ox 98 10/16/19 21:06 Weight - Most Recent: 76.657 kg I&O - Last 24 hours: Intake & Output 10/16/19 10/16/19 10/17/19 14:59 22:59 06:59 Intake Total 1800 Output Total 875 750 Balance 925 -750 Lab Results - Last 24 hrs: Laboratory Results - last 24 hr 10/16/19 Range/Units 06:02 WBC 14.66 H (3.98-10.04) K/mm3 RBC 3.23 L (3.98-5.22) M/mm3 Hgb 10.0 L D (11.2-15.7) gm/dl Hct 30.0 L (34.1-44.9) % MCV 92.9 D (79.4-94.8) fl MCH 31.0 (25.6-32.2) pg MCHC 33.3 (32.2-35.5) g/dl RDW Std Deviation 42.4 (36.4-46.3) fL Plt Count 178 L (182-369) K/mm3 MPV 9.7 (9.4-12.3) fl Med Orders - Current: Current Medications Diphenhydramine HCl (Benadryl) 25 mg IVPUSH Q6H PRN PRN Reason: Itching or Nausea Docusate Sodium (Colace) 100 mg PO Q12H PRN PRN Reason: Constipation Ibuprofen (Motrin) 600 mg PO Q6H PRN PRN Reason: mild pain or fever Last Admin: 10/16/19 21:10 Dose: 600 mg Ondansetron HCl (Zofran) 4 mg IV Q8H PRN PRN Reason: Nausea/Vomiting Oxycodone/Acetaminophen (Percocet 325-5 Mg) 2 tab PO Q4H PRN PRN Reason: Pain (severe 7-10) Last Admin: 10/17/19 04:08 Dose: 2 tab Discontinued Medications Acetaminophen (Tylenol) 650 mg PO Q4H PRN PRN Reason: Pain (Mild 1-3) and fever Bupivacaine HCl (Sensorcaine-Mpf 0.25%) 10 ml .ROUTE .STK-MED ONE Stop: 10/15/19 00:01 Calcium Carbonate/Glycine (Tums) 1,000 mg PO Q2H PRN PRN Reason: Indigestion Cefazolin Sodium (Ancef) Confirm Administered Dose 2 gm .ROUTE .STK-MED ONE Stop: 10/15/19 15:57 Citric Acid/Sodium Citrate (Bicitra Solution) Confirm Administered Dose 30 ml .ROUTE .STK-MED ONE Stop: 10/15/19 14:12 Last Admin: 10/15/19 18:44 Dose: Not Given Citric Acid/Sodium Citrate (Bicitra Solution) 30 ml PO ONETIME ONE Stop: 10/15/19 16:01 Last Admin: 10/15/19 15:56 Dose: 30 ml Diphenhydramine HCl (Benadryl) 25 mg IVPUSH Q6H PRN PRN Reason: pruritis Diphenhydramine HCl (Benadryl) 25 mg IVPUSH Q6H PRN PRN Reason: Pruritis Stop: 10/15/19 19:30 Ephedrine Sulfate (Ephedrine Sulfate) 5 mg IVPUSH ASDIRECTED PRN PRN Reason: Hypotension Fentanyl (Sublimaze) 100 mcg EPIDUR Q3H PRN PRN Reason: Pain Last Admin: 10/15/19 11:49 Dose: 100 mcg Fentanyl (Sublimaze) Confirm Administered Dose 100 mcg .ROUTE .STK-MED ONE Stop: 10/15/19 15:57 Fentanyl (Sublimaze) 50 mcg IVPUSH Q5M PRN PRN Reason: Pain Stop: 10/15/19 19:30 Fentanyl/Bupivacaine HCl (Fentanyl/Bupivacaine/Ns 2 Mcg-0.125% 250 Ml) 250 ml EP CONTINUOUS PRN PRN Reason: Pain Last Admin: 10/15/19 11:49 Dose: 250 ml Lactated Ringer's (Ringers, Lactated) 1,000 mls @ 100 mls/hr IV ASDIRECTED HIRA Last Admin: 10/15/19 17:45 Dose: 100 mls/hr Oxytocin/Lactated Ringer's (Pitocin In Lr 10 Units/1,000 Ml) 10 unit in 1,000 mls @ 500 mls/hr IV .CONTINUOUS HIRA Oxytocin/Lactated Ringer's (Pitocin In Lr 10 Units/1,000 Ml) 10 unit in 1,000 mls @ 12 mls/hr IV TITRATE HIRA; Protocol Last Titration: 10/15/19 12:26 Dose: 0 munits/min, 0 mls/hr Cefazolin Sodium/Dextrose 2 gm (/ Premix) 50 mls @ 100 mls/hr IV ONETIME ONE Stop: 10/15/19 16:22 Last Admin: 10/15/19 16:15 Dose: 100 mls/hr Lactated Ringer's (Ringers, Lactated) Confirm Administered Dose 2,000 mls @ as directed .ROUTE .STK-MED ONE Stop: 10/15/19 15:57 Azithromycin 500 mg/ Sodium (Chloride) 250 mls @ 250 mls/hr IV ONETIME ONE Stop: 10/15/19 17:06 Last Admin: 10/15/19 16:00 Dose: 250 mls/hr Lactated Ringer's (Ringers, Lactated) 1,000 mls @ 125 mls/hr IV ASDIRECTED HIRA Dextrose/Lactated Ringer's (Dextrose 5%-Lactated Ringers) 1,000 mls @ 125 mls/ hr IV ASDIRECTED HIRA Stop: 10/16/19 02:08 Last Admin: 10/15/19 20:45 Dose: 125 mls/hr Ketorolac Tromethamine (Toradol) Confirm Administered Dose 30 mg .ROUTE .STK- MED ONE Stop: 10/15/19 15:57 Ketorolac Tromethamine (Toradol) 30 mg IVPUSH Q6H HIRA Stop: 10/16/19 11:01 Last Admin: 10/16/19 10:55 Dose: 30 mg Lidocaine HCl (Xylocaine 1%) 50 ml INJECT ONETIME ONE Stop: 10/14/19 22:55 Last Admin: 10/15/19 18:46 Dose: Not Given Lidocaine/Epinephrine (Xylocaine-Mpf 2%-Epi 1:200,000) Confirm Administered Dose 20 ml .ROUTE .STK-MED ONE Stop: 10/15/19 16:43 Metoclopramide HCl (Reglan) Confirm Administered Dose 10 mg .ROUTE .STK-MED ONE Stop: 10/15/19 14:12 Last Admin: 10/15/19 18:44 Dose: Not Given Metoclopramide HCl (Reglan) 10 mg IVPUSH ONETIME ONE Stop: 10/15/19 15:54 Last Admin: 10/15/19 15:56 Dose: 10 mg Misoprostol (Cytotec) 25 mcg VAG Q4HR HIRA Misoprostol (Cytotec) 25 mcg VAG Q4H HIRA Last Admin: 10/15/19 18:44 Dose: Not Given Morphine Sulfate (Duramorph Pf) Confirm Administered Dose 10 mg .ROUTE .STK-MED ONE Stop: 10/15/19 15:57 Nalbuphine HCl (Nubain) 10 mg IVPUSH Q2H PRN PRN Reason: Pain Ondansetron HCl (Zofran) 4 mg IVPUSH Q4H PRN PRN Reason: Nausea/Vomiting Last Admin: 10/15/19 11:14 Dose: 4 mg Ondansetron HCl (Zofran) Confirm Administered Dose 4 mg .ROUTE .STK-MED ONE Stop: 10/15/19 15:57 Ondansetron HCl (Zofran) 4 mg IVPUSH ONETIME PRN PRN Reason: Nausea/Vomiting Stop: 10/15/19 19:30 Oxytocin (Pitocin) Confirm Administered Dose 20 unit .ROUTE .STK-MED ONE Stop: 10/15/19 15:57 Phenylephrine HCl (Phenylephrine In Ns 100 Mcg/Ml) Confirm Administered Dose 1 mg .ROUTE .STK-MED ONE Stop: 10/15/19 16:26 Phenylephrine HCl (Phenylephrine In Ns 100 Mcg/Ml) Confirm Administered Dose 1 mg .ROUTE .STK-MED ONE Stop: 10/15/19 16:43 Sodium Bicarbonate (Sodium Bicarbonate 8.4%) Confirm Administered Dose 50 meq .ROUTE .STK-MED ONE Stop: 10/15/19 16:43 Sodium Chloride (Saline Flush) 10 ml FLUSH ASDIRECTED PRN PRN Reason: Keep Vein Open
== END 2019-10-17 12:30 | disposition home or self-care (01) | DRG 540 ==
LOC: JD.OB 18:38 → JD.OBCHECK 18:38 → JD.OB 22:54 → OBSVTOIN 10-15 16:29 → JD.OB 10-15 16:47
PROVIDERS: ADMIT Obstetrics & Gynecology; ATTEND Obstetrics & Gynecology
PROC: 10D00Z1 Extraction of Products of Conception, Low, Open Approach (ICD-10-PCS; principal; 2019-10-15)
PROC: 3E0P7VZ Introduction of Hormone into Female Reproductive, Via Natural or Artificial Opening (ICD-10-PCS; 2019-10-15)
PROC: 10907ZC Drainage of Amniotic Fluid, Therapeutic from Products of Conception, Via Natural or Artificial Opening (ICD-10-PCS; 2019-10-15)
DX: O63.0 Prolonged first stage (of labor) (principal); O77.0 Labor and delivery complicated by meconium in amniotic fluid; Z3A.39 39 weeks gestation of pregnancy; Z37.0 Single live birth; O76 Abnormality in fetal heart rate and rhythm complicating labor and delivery
CPT/HCPCS: 01967; 01968; 36415; 51702; 59025; 85025; 85027; 86592; A9270-GY; J0456; J0690; J1885; J2270; J2370; J2405; J2590; J2765; J3010; J3490; J7050; J7120; J7121

== ENCOUNTER 2020-11-27 12:28 | Emergency (ER) | payer BC ==
[2020-11-27] MEDS ORDERED: Sodium Chloride 0.9% 10 ML Syringe FLUSH PRN (13:04)
--- NOTE | 2020-11-27 13:22 | EDM.PDOC ---
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 Patient notes she is roughly 6 weeks , she is a G2, P1 at this time. First went without complications. 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 Patient notes that by conception they thought they were roughly 7 to 8 weeks along but she did have an ultrasound done this last Monday that demonstrated an intrauterine with a gestational age of 5.5 weeks with no discernible heart rate at that time. Patient notes that she started having some spotting earlier this morning, and then it increased to vaginal bleeding that she soaked through a pad around 10:30 AM. She was experiencing some clots being expelled. Patient's blood pressure is okay at time of triage 111/80, pulse is 72, temperature 97.8 F, respiratory rate of 20 and O2 sats 99% on room air. Patient denies any other sick-like symptoms, fever/chills, cough/shortness of breath, nausea/vomiting/diarrhea. 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 ED EXAM - Physical Exam Exam: See Below Exam Limited By: No Limitations General Appearance: Alert, WD/WN, No Apparent Distress Respiratory/Chest: No Respiratory Distress, Lungs Clear, Normal Breath Sounds, No Accessory Muscle Use, Chest Non-Tender Cardiovascular: Normal Peripheral Pulses, Regular Rate, Rhythm, No Edema GI/Abdominal Exam: Normal Bowel Sounds, Soft, No Distention, No Mass, Tender (somewhat tender in lower abdomen) Heart Tones: Not [place] Movement: Not Appreciated Extremities: Normal Inspection, Normal Capillary Refill Neurological: Alert, Oriented, Normal Cognition, No Motor/Sensory Deficits Psychiatric: Normal Affect, Normal Mood Skin Exam: Warm, Dry, Intact, Normal Color, No Rash Course - Vital Signs Last Recorded V/S: Last Vital Signs Temp 97.8 F 11/27/20 12:47 Pulse 70 11/27/20 12:47 Resp 20 11/27/20 12:47 BP 111/80 11/27/20 12:47 Pulse Ox 99 11/27/20 12:47 - Orders/Labs/Meds Orders: Active Orders 24 hr Category Date Time Status Peripheral IV Care [RC] . DIRECTED Care 11/27/20 13:04 Active PATIENT RETYPE [BBK] Routine Lab 11/27/20 13:57 Ordered Sodium Chloride 0.9% [Saline Flush] Med 11/27/20 13:04 Active 10 ml FLUSH ASDIRECTED PRN Peripheral IV Insertion Adult [OM.PC] Stat Oth 11/27/20 13:04 Ordered Medication Orders Sodium Chloride (Saline Flush) 10 ml FLUSH ASDIRECTED PRN PRN Reason: Keep Vein Open Last Admin: 11/27/20 13:28 Dose: 10 ml Documented by: JIM Labs: Laboratory Tests 11/27/20 11/27/20 11/27/20 Range/Units 13:25 13:25 13:25 WBC 9.41 (3.98-10.04) K/mm3 RBC 5.19 (3.98-5.22) M/mm3 Hgb 15.3 D (11.2-15.7) gm/dl Hct 45.5 H (34.1-44.9) % MCV 87.7 D (79.4-94.8) fl MCH 29.5 (25.6-32.2) pg MCHC 33.6 (32.2-35.5) g/dl RDW Std Deviation 39.3 (36.4-46.3) fL Plt Count 272 D (182-369) K/mm3 MPV 10.4 (9.4-12.3) fl Neut % (Auto) 66.9 (34.0-71.1) % Lymph % (Auto) 26.8 (19.3-51.7) % Edwards % (Auto) 5.4 (4.7-12.5) % Eos % (Auto) 0.4 L (0.7-5.8) Baso % (Auto) 0.4 (0.1-1.2) % Neut # (Auto) 6.29 H (1.56-6.13) K/mm3 Lymph # (Auto) 2.52 (1.18-3.74) K/mm3 Edwards # (Auto) 0.51 H (0.24-0.36) K/mm3 Eos # (Auto) 0.04 (0.04-0.36) K/mm3 Baso # (Auto) 0.04 (0.01-0.08) K/mm3 HCG, Quant 2235.0 mIU/mL Blood Type O POSITIVE Meds: Medications Generic Name Dose Route Start Last Admin Trade Name Freq PRN Reason Stop Dose Admin Sodium Chloride 10 ml 11/27/20 13:04 11/27/20 13:28 Saline Flush FLUSH 10 ml ASDIRECTED PRN Administration Keep Vein Open - Re-Assessments/Exams Free Text/Narrative Re-Assessment/Exam: 11/27/20 13:21 Patient presents to the ED for her possible miscarriage. We will get IV established, obtain hCG quantitative level, check her blood type, repeat ultrasound for initial evaluation. 11/27/20 14:28 Patient's labs have returned, hemoglobin is within normal limits at 15.3, hCG quantitative level is 2235 patient's blood type is O+. Ultrasound was performed and read as no gestational sac seen as compared to previous exam, small amount of physiologic fluid within the cul-de-sac. It does appear that the patient likely passed the tissue and has had a miscarriage we will go ahead and give her general recommendations with strict return precautions and have her follow-up w rosanne Prieto on Monday Departure - Departure Time of Disposition: 14:30 Disposition: Home, Self-Care 01 Condition: Good Clinical Impression: Miscarriage - Discharge Information *PRESCRIPTION DRUG MONITORING PROGRAM REVIEWED*: No *COPY OF PRESCRIPTION DRUG MONITORING REPORT IN PATIENT KEYANNA: No Instructions: Miscarriage, [id number], Managing Loss Referrals: Gayathri Prieto MD [Primary Care Provider] - Forms: ED Department Discharge Additional Instructions: You were evaluated in the ER today regarding your abdominal pain/vaginal bleeding in . You did have some labs drawn, and these were within normal limits, your hCG level was 2,235 , your blood type is O+. Your ultrasound demonstrated unfortunately demonstrated no sac that was identified 2 days prior in your first ultrasound. It does appear as if you have suffered a miscarriage at today's visit. If you are bleeding through more than 1-2 maxi pads every couple hours, this would be cause for concern to return to the ER for immediate management. You may use 500 mg Tylenol or 600 mg ibuprofen every 6 hours as needed for further abdominal discomfort. Do not exceed 4000 mg Tylenol or 3200 mg ibuprofen in a 24-hour time span. Highly recommend you follow-up with Dr. Prieto on Monday, for continuing management if it is deemed necessary. Please return to the ED at any time if your symptoms change or worsen. Sepsis Event Note (ED) - Evaluation Sepsis Screening Result: No Definite Risk - Focused Exam Vital Signs: Vital Signs Temp Pulse Resp BP Pulse Ox 11/27/20 12:47 97.8 F 70 20 111/80 99 - My Orders Last 24 Hours: My Active Orders 11/27/20 13:04 Peripheral IV Care [RC] . DIRECTED Sodium Chloride 0.9% [Saline Flush] 10 ml FLUSH ASDIRECTED PRN Peripheral IV Insertion Adult [OM.PC] Stat 11/27/20 13:57 PATIENT RETYPE [BBK] Routine - Assessment/Plan Last 24 Hours: My Active Orders 11/27/20 13:04 Peripheral IV Care [RC] . DIRECTED Sodium Chloride 0.9% [Saline Flush] 10 ml FLUSH ASDIRECTED PRN Peripheral IV Insertion Adult [OM.PC] Stat 11/27/20 13:57 PATIENT RETYPE [BBK] Routine
--- NOTE | 2020-11-27 14:25 | US ---
First trimester obstetrical ultrasound: Multiple real-time images were obtained transvaginally. Comparison: Previous first trimester obstetrical ultrasound of 11/25/20. Endometrium appears thickened and irregular. No intrauterine gestational sac is appreciated. Ovaries appear within normal limits. Very minimal free fluid is seen within the cul-de-sac which is believed to be physiologic. Impression: 1. Thickened and irregular endometrium. No gestational sac is seen which most likely represents miscarriage of gestational sac seen on prior ultrasound. 2. Slight amount of fluid within the cul-de-sac believed to be physiologic. 3. Other normal findings as noted above. Diagnostic code #3
== END 2020-11-27 15:00 | disposition home or self-care (01) ==
LOC: JD.ED 12:28
DX: O03.9 Complete or unspecified spontaneous abortion without complication (principal)
CPT/HCPCS: 36415; 76817; 76817-26; 84702; 85025; 86900; 86901; 99283; 99284-25

== ENCOUNTER 2022-03-14 06:51 | Inpatient (IN) | payer BC ==
[~2022-03-14 06:51] MED LIST: Bupivacaine 0.25% 10 ML SDV ONE; Phenylephrine/Normal Saline 100 MCG/ML 10 ML Syringe ONE; ePHEDrine 50 MG/ML SDV ONE
[2022-03-14] MEDS ORDERED: Nalbuphine HCl 10 MG/ 1ML Amp IVPUSH PRN (07:23)
[2022-03-14] MEDS ORDERED: Ondansetron 4 MG/2 ML SDV IVPUSH PRN (07:23)
[2022-03-14] MEDS ORDERED: Sodium Chloride 0.9% 10 ML Syringe FLUSH PRN (07:23)
[2022-03-14] MEDS ORDERED: Oxytocin/Lactated Ringers 10 UNIT/1,000 ML BAG IV SCH ×2 (07:30)
[2022-03-14] MEDS: Lactated Ringers 1,000 ML IV SCH ×3 (07:58→17:56)
[2022-03-14] MEDS ORDERED: Sodium Chloride 0.9% 10 ML Syringe FLUSH SCH (09:00)
[2022-03-14] MEDS ORDERED: Bupivacaine/fentaNYL/NS 100 ML Bag EPIDUR PRN (09:27)
[2022-03-14] MEDS ORDERED: fentaNYL 100 MCG/2 ML SDV EPIDUR PRN (09:27)
[2022-03-14] MEDS ORDERED: ePHEDrine 50 MG/ML SDV IVPUSH PRN (09:27)
[2022-03-14] MEDS ORDERED: diphenhydrAMINE 50 MG/ML SDV IVPUSH PRN (09:27)
[2022-03-14] MEDS ORDERED: Acetaminophen 325 MG Tab PO PRN (19:32)
[2022-03-14] MEDS ORDERED: Benzocaine/Menthol 20%-0.5% Spray 78 GM Cannister TOP PRN (19:32)
[2022-03-14] MEDS ORDERED: Witch Hazel Medicated Pads 40/Jar TOP PRN (19:32)
[2022-03-14] MEDS: Docusate Sodium 100 MG Cap PO PRN (20:41)
[2022-03-14] MEDS: Ibuprofen 600 MG Tab PO PRN (20:41)
[2022-03-15] MEDS: Ibuprofen 600 MG Tab PO PRN ×2 (03:54→14:01)
[2022-03-15] MEDS: Docusate Sodium 100 MG Cap PO PRN (14:02)
== END 2022-03-15 19:38 | disposition home or self-care (01) | DRG 560 ==
LOC: JD.OBCHECK 06:51 → INTOOBSV 07:16 → JD.OB 07:16 → OBSVTOIN 18:51 → JD.OB 18:52
PROVIDERS: ADMIT Obstetrics & Gynecology; ATTEND Obstetrics & Gynecology
PROC: 10D07Z6 Extraction of Products of Conception, Vacuum, Via Natural or Artificial Opening (ICD-10-PCS; principal; 2022-03-14)
PROC: 0KQM0ZZ Repair Perineum Muscle, Open Approach (ICD-10-PCS; 2022-03-14)
PROC: 3E0P7VZ Introduction of Hormone into Female Reproductive, Via Natural or Artificial Opening (ICD-10-PCS; 2022-03-14)
PROC: 0U7C7ZZ Dilation of Cervix, Via Natural or Artificial Opening (ICD-10-PCS; 2022-03-14)
PROC: 3E033VJ Introduction of Other Hormone into Peripheral Vein, Percutaneous Approach (ICD-10-PCS; 2022-03-14)
PROC: 10907ZC Drainage of Amniotic Fluid, Therapeutic from Products of Conception, Via Natural or Artificial Opening (ICD-10-PCS; 2022-03-14)
PROC: 3E0R3BZ Introduction of Anesthetic Agent into Spinal Canal, Percutaneous Approach (ICD-10-PCS; 2022-03-14)
PROC: 00HU33Z Insertion of Infusion Device into Spinal Canal, Percutaneous Approach (ICD-10-PCS; 2022-03-14)
DX: O34.211 Maternal care for low transverse scar from previous cesarean delivery (principal); Z3A.39 39 weeks gestation of pregnancy; Z37.0 Single live birth; O70.1 Second degree perineal laceration during delivery; Z90.49 Acquired absence of other specified parts of digestive tract; O99.62 Diseases of the digestive system complicating childbirth; K21.9 Gastro-esophageal reflux disease without esophagitis
CPT/HCPCS: 01967; 36415; 51702; 59025; 59409; 85027; 86850; 86900; 86901; A9270-GY; C1726; J2370; J2590; J3010; J3490; J7120

== ENCOUNTER 2024-04-22 06:48 | Inpatient (IN) | payer BC ==
[~2024-04-22 06:48] MED LIST changes: -Phenylephrine/Normal Saline 100 MCG/ML 10 ML Syringe ONE; -ePHEDrine 50 MG/ML SDV ONE
[2024-04-22] MEDS ORDERED: Sodium Chloride 0.9% 10 ML Syringe FLUSH PRN (07:10)
[2024-04-22] MEDS ORDERED: Ondansetron 4 MG/2 ML SDV IVPUSH PRN (07:10)
[2024-04-22] MEDS ORDERED: Nalbuphine 10 MG/ML Syringe IVPUSH PRN (07:10)
[2024-04-22] MEDS ORDERED: Lidocaine 1% 50 ML MDV INJECT PRN (07:10)
[2024-04-22] MEDS ORDERED: Oxytocin/Lactated Ringers 30 UNIT/500 ML BAG IV SCH (07:15)
[2024-04-22 07:30] LABS: BASOPHILS PERCENT AUTO 0.5 % (0.0-1.0); EOSINOPHILS ABSOLUTE AUTO 0.1 K/mm3 (0.0-0.4); HEMATOCRIT 36.8 % (37.0-47.0); HEMOGLOBIN 12.1 gm/dl (12.0-16.0); IMMATURE GRAN ABSOLUTE AUTO 0.03 K/mm3 (0.00-0.05); IMMATURE GRAN PERCENT AUTO 0.3 % (0.0-0.4); LYMPHOCYTES ABSOLUTE AUTO 3.4 K/mm3 (1.0-4.8); LYMPHOCYTES PERCENT AUTO 38.4 % (24.0-44.0); MEAN CORPUSCULAR HEMOGLOBIN 28.9 pg (28.0-32.0); MEAN CORPUSCULAR HGB CONC 32.9 g/dl (32.0-36.0); MEAN PLATELET VOLUME 10.9 fl (9.4-12.3); MONOCYTES ABSOLUTE AUTO 0.6 K/mm3 (0.0-0.8); MONOCYTES PERCENT AUTO 6.7 % (0.0-8.0); NEUTROPHILS ABSOLUTE AUTO 4.7 K/mm3 (1.8-7.7); NEUTROPHILS PERCENT AUTO 53.1 % (41.0-71.0); PLATELET COUNT,PLT 242 K/mm3 (150-400); RED BLOOD CELL COUNT 4.18 M/mm3 (4.10-5.30); WHITE BLOOD CELL COUNT,WBC 8.78 K/mm3 (3.9-11.3)
[2024-04-22] MEDS ORDERED: diphenhydrAMINE 50 MG/ML SDV IVPUSH PRN (07:35)
[2024-04-22] MEDS ORDERED: ePHEDrine 50 MG/ML SDV IVPUSH PRN (07:35)
[2024-04-22] MEDS: Lactated Ringers 1,000 ML IV SCH (07:46)
[2024-04-22] MEDS: Oxytocin/Lactated Ringers 30 UNIT/500 ML BAG IV SCH (07:46)
[2024-04-22] MEDS: Ampicillin 2 GM in Sodium Chloride 0.9% 100 ML IV ONE (07:47)
[2024-04-22] MEDS ORDERED: Sodium Chloride 0.9% 10 ML Syringe FLUSH SCH (09:00)
[2024-04-22] MEDS: Ampicillin 1 GM in Sodium Chloride 0.9% 100 ML IV SCH (11:30)
[2024-04-22] MEDS: Bupivacaine/fentaNYL/NS 100 ML Bag EPIDUR PRN (13:11)
[2024-04-22] MEDS: fentaNYL 100 MCG/2 ML SDV EPIDUR PRN (13:11)
[2024-04-22] MEDS: Benzocaine/Menthol 20%-0.5% Spray 78 GM Cannister TOP PRN (20:30)
[2024-04-22] MEDS: Witch Hazel Medicated Pads 40/Jar TOP PRN (20:30)
[2024-04-22] MEDS: Ibuprofen 600 MG Tab PO SCH (21:29)
[2024-04-23] MEDS: Docusate Sodium 100 MG Cap PO PRN (13:05)
[2024-04-23] MEDS: Acetaminophen 325 MG Tab PO PRN (17:16)
== END 2024-04-23 17:20 | disposition home or self-care (01) | DRG 560 ==
LOC: JD.OB 06:48 → OBSVTOIN 18:37 → JD.OB 18:37
PROVIDERS: ADMIT Obstetrics & Gynecology; ATTEND Obstetrics & Gynecology
PROC: 10E0XZZ Delivery of Products of Conception, External Approach (ICD-10-PCS; principal; 2024-04-22)
PROC: 10907ZC Drainage of Amniotic Fluid, Therapeutic from Products of Conception, Via Natural or Artificial Opening (ICD-10-PCS; 2024-04-22)
PROC: 0U7C7ZZ Dilation of Cervix, Via Natural or Artificial Opening (ICD-10-PCS; 2024-04-22)
PROC: 3E033VJ Introduction of Other Hormone into Peripheral Vein, Percutaneous Approach (ICD-10-PCS; 2024-04-22)
PROC: 3E0R3BZ Introduction of Anesthetic Agent into Spinal Canal, Percutaneous Approach (ICD-10-PCS; 2024-04-22)
PROC: 00HU33Z Insertion of Infusion Device into Spinal Canal, Percutaneous Approach (ICD-10-PCS; 2024-04-22)
PROC: 0KQM0ZZ Repair Perineum Muscle, Open Approach (ICD-10-PCS; 2024-04-22)
DX: O34.219 Maternal care for unspecified type scar from previous cesarean delivery (principal); Z37.0 Single live birth; O99.62 Diseases of the digestive system complicating childbirth; K21.9 Gastro-esophageal reflux disease without esophagitis; O99.824 Streptococcus B carrier state complicating childbirth; O69.81X0 Labor and delivery complicated by cord around neck, without compression, not applicable or unspecified; O70.1 Second degree perineal laceration during delivery; Z3A.39 39 weeks gestation of pregnancy; Z98.890 Other specified postprocedural states; Z90.49 Acquired absence of other specified parts of digestive tract
CPT/HCPCS: 36415; 51702; 59025; 59409; 85025; 86592; 86850; 86900; 86901; A9270-GY; J0290; J0665; J3010; J3490; J7120; J7999